=== PATIENT | female | born 1990 | race Caucasian/White ===

== ENCOUNTER 2017-03-13 07:51 | Emergency (ER) | payer OTHER ==
[2017-03-13 07:55] VITALS: BP 104/69; BMI 32.0
--- NOTE | 2017-03-13 08:26 | DR.GENAD ---
HPI - PCP Primary Care Physician: DAE BARRETT - Complaint/Symptoms Chief Complaint:: PT. C/O COUGHING, WHEEZING, CHEST TIGHTNESS, SORE THROAT, & FEVER. - Nurses notes reviewed Nurses Notes Review: Yes - Source History Provided: Patient - Mode of Arrival Mode of Arrival: Ambulatory - Timing Onset of Chief Complaint: 03/11/17 Came on: Gradually - Duration Duration: Intermittent How lon Duration: Days - Location Location: lungs - Severity Severity: Mild - Modifying Factors Worsens:: exercise - Associated Signs and Symptoms Associated Signs and Symptoms: sore throat PMH - PMH Past Medical History: Yes Past Medical History: Anxiety Past Surgical History: Yes Surgical History: , Cholecystectomy - Family History History of Family Medical Conditions: Yes Family Medical History: Hypertension - Social History Does patient currently use any type of tobacco product: No Have you used tobacco products in the last 12 months: No Type of Tobacco Use: None Does any household member use tobacco: No Alcohol Use: Occasionally Do you use any recreational Drugs:: No Lives With: Family Lives Where: Home - infectious screening In the last 2 months have you had wt loss of >10#?: NO Have you had fever, night sweats or hemotysis?: No Have you traveled outside the country in the last 6 months?: No Isolation: Standard ROS - Review of Systems Constitutional: No Symptoms Reported Eyes: No Symptoms Reported ENTM: Throat Pain Respiratoy: Non-Productive Cough, Wheezing (slight) Cardiovascular: No Symptoms Reported Gastrointestinal/Abdominal: No Symptoms Reported Genitourinary: No Symptoms Reported Neurological: No Symptoms Reported Musculoskeletal: No Symptoms Reported Integumentary: No Symptoms Reported Hematologic/Lymphatic: No Symptoms Reported Endocrine: No Symptoms Reported Psychiatric: Depression PE - Vital Signs Vitals: Temperature 98.2 F Pulse Rate 88 Respiratory Rate 17 Blood Pressure [Right Arm] 112/66 Blood Pressure [Left Arm] 102/63 Blood Pressure 104/69 O2 Sat by Pulse Oximetry 97 - General Limitations: No Limitations General Appearance: Alert, In No Apparent Distress - Head Head Exam: Normal Inspection - Eyes Eye exam: Normal Appearance, EOMI. negative: Scleral Icterus, Conjunctival Injection - ENT ENT Exam: Normal Exam, Normal Oropharynx External Ear Exam: Normal External Inspection Nose Exam: Normal Nose Exam Mouth Exam: Normal Inspection Throat Exam: Normal Inspection - Neck Neck Exam: Normal Inspection, Full ROM, Trachea Midline - Chest Chest Inspection: Normal Inspection - Respiratory Respiratory Exam: negative: Normal Lung Sounds Bilat, Accessory Muscle Use Respiratory Exam: Left Wheezing - Cardiovascular Cardiovascular Exam: Regular Rate - Extremities Extremities Exam: Normal Inspection, Full ROM - Neurologic Neurological Exam: Alert, Oriented X3, CN II-XII Intact - Psychiatric Psychiatric Exam: Depressed - Skin Skin Exam: Intact, Normal Color Course - Treatment Treatment: wheezing resolved after nebulizer. - Diagnosis Discharge Problem: Bronchitis - Discharge Plan Condition: Stable Prescriptions: Amoxicillin [AMOXIL CAP 500 MG *] 500 mg PO TID #30 cap Prednisone [Prednisone DS Dosepak 10 mg (12 day)] 1 jose PO ONCE #1 jose - Follow ups/Referrals Follow ups/Referrals: VIOLA ROMERO [Primary Care Provider] - 3 days - Instructions
[2017-03-13] MEDS ORDERED: XOPENEX 1.25 MG/3 ML NEB ONE (08:29)
[2017-03-13] MEDS ORDERED: XOPENEX 1.25 MG/3 ML ONE (08:45)
== END 2017-03-13 08:59 | disposition home or self-care (01) ==
LOC: ER 07:51
DX: J40 Bronchitis, not specified as acute or chronic (principal)
CPT/HCPCS: 94640; 99282

== ENCOUNTER 2017-03-28 20:28 | Emergency (ER) | payer OTHER ==
[2017-03-28 20:37] VITALS: BP 128/87
--- NOTE | 2017-03-28 21:04 | DR.GENAD ---
HPI - PCP Primary Care Physician: Viola Moore - Complaint/Symptoms Chief Complaint:: "I just feel really lightheaded and I have this burning feeling all over my body. My stomach is burning for some reason as well." - Source History Provided: Patient - Mode of Arrival Mode of Arrival: Ambulatory - Timing Onset of Chief Complaint: 03/28/17 PMH - PMH Past Medical History: Yes Past Medical History: Anxiety Past Surgical History: Yes Surgical History: , Cholecystectomy - Family History History of Family Medical Conditions: Yes Family Medical History: Hypertension - Social History Does patient currently use any type of tobacco product: No Have you used tobacco products in the last 12 months: No Type of Tobacco Use: None Does any household member use tobacco: No Alcohol Use: Rarely Do you use any recreational Drugs:: No Lives With: Spouse Lives Where: Home - infectious screening In the last 2 months have you had wt loss of >10#?: NO Have you had fever, night sweats or hemotysis?: No Have you traveled outside the country in the last 6 months?: No Isolation: Standard ROS - Review of Systems Eyes: No Symptoms Reported ENTM: No Symptoms Reported Respiratoy: No Symptoms Reported Cardiovascular: No Symptoms Reported Gastrointestinal/Abdominal: No Symptoms Reported Genitourinary: No Symptoms Reported Neurological: Weakness Musculoskeletal: No Symptoms Reported Integumentary: No Symptoms Reported Hematologic/Lymphatic: No Symptoms Reported Endocrine: No Symptoms Reported Psychiatric: No Symptoms Reported All Other Systems: Reviewed and Negative PE - Vital Signs Vitals: Temperature 97.9 F Pulse Rate 120 Respiratory Rate 23 Blood Pressure [Right Arm] 112/66 Blood Pressure [Left Arm] 102/63 Blood Pressure 128/87 O2 Sat by Pulse Oximetry 100 - General Limitations: No Limitations General Appearance: Alert, In No Apparent Distress - Head Head Exam: Normal Inspection, Atraumatic - Eyes Eye exam: Normal Appearance, PERRL, EOMI - ENT ENT Exam: Normal Exam External Ear Exam: Normal External Inspection TM/Canal Exam: Bilateral Normal Nose Exam: Normal Nose Exam Mouth Exam: Normal Inspection Throat Exam: Normal Inspection - Neck Neck Exam: Normal Inspection - Chest Chest Inspection: Normal Inspection - Respiratory Respiratory Exam: Normal Lung Sounds Bilat Respiratory Exam: Bilateral Clear to Auscultation - Cardiovascular Cardiovascular Exam: Regular Rate - Abdominal Exam Abdominal Exam: Normal Inspection Abdominal Tenderness: negative: RUQ, RLQ, LUQ, LLQ, Epigastrium, Suprapubic, Diffuse, Mild, Moderate, Severe, Other - Extremities Extremities Exam: Normal Inspection, Full ROM - Back Back Exam: Normal Inspection - Neurologic Neurological Exam: Alert, Oriented X3, CN II-XII Intact - Psychiatric Psychiatric Exam: Normal Affect - Skin Skin Exam: Warm, Dry, Intact Course - Reevaluation 1st: Improved ROR - Labs Reviewed Laboratory Results Reviewed?: Yes (low potassium) Result Diagrams: 03/28/17 21:50 03/28/17 21:50 Laboratory: WBC 15.0 X10^3/uL (3.6-10.0) H 03/28/17 21:50 RBC 4.59 X10^6/uL (3.5-5.4) 03/28/17 21:50 Hgb 14.1 g/dL (12.0-16.0) 03/28/17 21:50 Hct 41.5 % (36.0-47.0) 03/28/17 21:50 MCV 90.3 fL (80.0-100.0) 03/28/17 21:50 MCH 30.7 pg (27.0-34.0) 03/28/17 21:50 MCHC 34.0 g/dL (33.0-35.0) 03/28/17 21:50 RDW 13.0 % (11.6-16.5) 03/28/17 21:50 Plt Count 271 X10^3/uL (150.0-450.0) 03/28/17 21:50 MPV 7.8 fL (7.4-11.0) 03/28/17 21:50 Neut % 61.3 % (42.0-75.0) 03/28/17 21:50 Lymph % 26.6 % (21.0-51.0) 03/28/17 21:50 [place] % 10.0 % (0.0-13.0) 03/28/17 21:50 Eos % 1.7 % (0.9-2.9) 03/28/17 21:50 Baso % 0.4 % (0.2-1.0) 03/28/17 21:50 Neut # 9.2 x10^3/uL (2.2-4.8) H 03/28/17 21:50 Lymph # 4.0 X10^3/uL (1.3-2.9) H 03/28/17 21:50 [place] # 1.5 x10^3/uL (0.3-0.8) H 03/28/17 21:50 Eos # 0.3 x10^3/uL (0.0-0.2) H 03/28/17 21:50 Baso # 0.1 X10^3/uL (0.0-0.1) 03/28/17 21:50 Absolute Nucleated RBC 0.0 /100WBC 03/28/17 21:50 Sodium 143 mmol/L (136-145) 03/28/17 21:50 Corrected Sodium 143 mmol/L (136-145) 03/28/17 21:50 Potassium 3.1 mmol/L (3.5-5.1) L 03/28/17 21:50 Chloride 105 mmol/L (98-107) 03/28/17 21:50 Carbon Dioxide 23.6 mmol/L (21-32) 03/28/17 21:50 BUN 10 mg/dL (7-18) 03/28/17 21:50 Creatinine 0.69 mg/dL (0.55-1.02) 03/28/17 21:50 Est GFR (MDRD) Af Amer > 60 (>60) 03/28/17 21:50 Est GFR (MDRD) Non-Af > 60 (>60) 03/28/17 21:50 Glucose 114 mg/dL (65-99) H 03/28/17 21:50 Calcium 8.8 mg/dL (8.5-10.1) 03/28/17 21:50 Specimen Type Clean catch urine 03/28/17 21:09 Urine Color Yellow (YELLOW) 03/28/17 21:09 Urine Appearance Clear (CLEAR) 03/28/17 21:09 Urine pH 8.0 (5.0 - 8.0) 03/28/17 21:09 Ur Specific [place] 1.010 (1.000-1.030) 03/28/17 21:09 Urine Protein Negative (NEGATIVE) 03/28/17 21:09 Urine Glucose (UA) Negative (NEGATIVE) 03/28/17 21:09 Urine Ketones Negative (NEGATIVE) 03/28/17 21:09 Urine Occult Blood Negative (NEGATIVE) 03/28/17 21:09 Urine Nitrite Negative (NEGATIVE) 03/28/17 21:09 Urine Bilirubin Negative (NEGATIVE) 03/28/17 21:09 Urine Urobilinogen Normal (NORMAL) 03/28/17 21:09 Ur Leukocyte Esterase Negative (NEGATIVE) 03/28/17 21:09 Urine RBC 0-2 /HPF (NEGATIVE) 03/28/17 21:09 Urine WBC 0-2 /HPF (NEGATIVE) 03/28/17 21:09 Ur Squamous Epith Cells Negative /HPF (NEGATIVE) 03/28/17 21:09 Urine Bacteria Negative /HPF (NEGATIVE) 03/28/17 21:09 Ur Culture Indicated? No/not indicated 03/28/17 21:09 - Diagnosis Discharge Problem: Hypokalemia - Discharge Plan Condition: Stable - Follow ups/Referrals Follow ups/Referrals: VIOLA MOORE [Primary Care Provider] - 3 days - Instructions
[2017-03-28 21:15] LABS: BILIRUBIN,URINE NEGATIVE (NEGATIVE); BLOOD/HEMOGLOBIN,URINE NEGATIVE (NEGATIVE); GLUCOSE, URINE NEGATIVE (NEGATIVE); KETONES,URINE NEGATIVE (NEGATIVE); LEUKOCYTE ESTERASE ,URINE NEGATIVE (NEGATIVE); NITRITES,URINE NEGATIVE (NEGATIVE); PROTEIN,URINE NEGATIVE (NEGATIVE); UROBILINOGEN,URINE NORMAL (NORMAL)
[2017-03-28 21:23] LABS: APPEARANCE,URINE CLEAR (CLEAR); COLOR,URINE YELLOW (YELLOW); RBC,URINE 0-2 /HPF (NEGATIVE); SQUAMOUS EPITHELIAL CELL,UR NEGATIVE /HPF (NEGATIVE)
[2017-03-28 21:24] LABS: BACTERIA,URINE NEGATIVE /HPF (NEGATIVE)
[2017-03-28] MEDS ORDERED: NS 1000 ML 1,000 ML IV ONE (21:43)
[2017-03-28] MEDS ORDERED: NS 1000 ML 1,000 ML ONE (21:45)
[2017-03-28 22:07] LABS: BASOPHILS # (AUTO) 0.1 X10^3/uL (0.0-0.1); BASOPHILS % (AUTO) 0.4 % (0.2-1.0); EOSINOPHILS # (AUTO) 0.3 x10^3/uL (0.0-0.2); EOSINOPHILS % (AUTO) 1.7 % (0.9-2.9); HEMATOCRIT 41.5 % (36.0-47.0); HEMOGLOBIN 14.1 g/dL (12.0-16.0); LYMPHOCYTES % (AUTO) 26.6 % (21.0-51.0); MEAN CORPUSCULAR HEMOGLOBIN 30.7 pg (27.0-34.0); MEAN CORPUSCULAR VOLUME 90.3 fL (80.0-100.0); MEAN PLATELET VOLUME 7.8 fL (7.4-11.0); MONOCYTES # (AUTO) 1.5 x10^3/uL (0.3-0.8); NEUTROPHILS # (AUTO) 9.2 x10^3/uL (2.2-4.8); NEUTROPHILS % (AUTO) 61.3 % (42.0-75.0); PLATELET COUNT 271 X10^3/uL (150.0-450.0); RED BLOOD COUNT 4.59 X10^6/uL (3.5-5.4)
[2017-03-28 22:16] LABS: BLOOD UREA NITROGEN 10 mg/dL (7-18); CALCIUM 8.8 mg/dL (8.5-10.1); CARBON DIOXIDE 23.6 mmol/L (21-32); CHLORIDE 105 mmol/L (98-107); COR NA(FOR HYPERGLY) 143 mmol/L (136-145); CREATININE 0.69 mg/dL (0.55-1.02); GLUCOSE 114 mg/dL (65-99); SODIUM 143 mmol/L (136-145); eGFR BLACK RACES > 60 (>60); eGFR NON BLACK RACES > 60 (>60)
[2017-03-28] MEDS ORDERED: K-LYTE EFFERVESCENT PO STA (22:48)
== END 2017-03-28 23:20 | disposition home or self-care (01) ==
LOC: ER 20:38
DX: E87.6 Hypokalemia (principal)
CPT/HCPCS: 36415; 80048; 81001; 85025; 87502; 87503; 96365; 99283; A4222

== ENCOUNTER 2022-03-18 08:18 | Inpatient (IN) ==
--- NOTE | 2022-03-18 08:39 | DR.H&P ---
H&P - History & Physical for Day of: H&P Date: 03/18/22 - Chief Complaint Chief Complaint: SEVERE SWELLING TO LOWER LIP WITH "PUS POCKET" - History of Present Illness History of Present Illness: PT IS 31 WF DIRECT ADMIT FROM DR COTTO OFFICE WITH CELLULITIS AND ABSCESS FORMATION TO LOWER LIP. PT REPORTS ONSET APPROX ONE WEEK AGO. PT WAS SEEN IN ER X3, FAILED ON AMOXIL AND STEROIDS GIVEN IN ER. PT WAS STARTED ON BACTRIM DS ON FRIDAY WITHOUT IMPROVEMENT. PT CO PAIN TO RIGHT SIDE OF FACE UP TO EAR ONSET FRIDAY. PT DENIES ANY PMH OF DM OR HTN. PT ADMITTED FOR TREATMENT OF ACUTE ILLNESS. - Past Medical History Past Medical History: Anxiety - Past Surgical History Surgical History: Cholecystectomy, , Ortho Surgery - Family History Family Medical History: Hypertension - Social History Does patient currently use any type of tobacco product: No Have you used tobacco products in the last 12 months: No Type of Tobacco Use: Cigarettes Does any household member use tobacco: No Alcohol Use: None Drug Use: None Prescription drug monitoring program results: PDMP reviewed and no concerns identified - Medications Home Medications: No Known Drug Allergies Allergy (Verified 03/21/21 22:06) - Review of Systems Constitutional: Fever, Chills, Malaise Eyes: No Symptoms Reported ENT: Mouth Pain, Other (LOWER LIP SWELLING, REDNESS) Respiratory: No Symptoms Reported Cardiovascular: No Symptoms Reported Gastrointestinal: Nausea Genitourinary: No Symptoms Reported (LOWER LIP) Musculoskeletal: No Symptoms Reported Skin: Wound Neurological: No Symptoms Reported - Physical Exam Vital Signs: Blood Pressure [Right Arm] 112/68 Oriented: Normal Eyes: Normal Ear: Normal Nose: Normal Throat: Normal Respiratory: Clear Throughout Cardiovascular: Normal : Normal Auscultation: Bowel Sounds: Normal Palpation: Normal Tenderness: Normal Skin: Red, Tender (DIFFUSE REDNESS AND SWELLING TO LOWER LIP WITH ABSCESS FORMATION), Hot Musculoskeletal: Normal Psychiatric: Anxiety Mood Description: Anxious Affect: Anxious Speech Pattern: Clear, Appropriate - Assessment/Plan (1) Cellulitis and abscess of face Status: Acute Plan: ADMIT, IV ATBX. CONSULT DR MARROQUIN FOR I&D. BLOOD AND WOUND CULTURE. IV HYDRATION, PAIN AND NAUSEA CONTROL (2) Angioedema Qualifiers: Encounter type: subsequent encounter Qualified Code(s): T78.3XXD - Angioneurotic edema, subsequent encounter Status: Acute (3) Anxiety Status: Chronic - Allergies Allergies/Adverse Reactions: Allergies Allergy/AdvReac Type Severity Reaction Status Date / Time No Known Drug Allergies Allergy Verified 03/21/21 22:06
[2022-03-18] MEDS ORDERED: XYLOCAINE VISCOUS MT PRN (09:13)
[2022-03-18 09:33] VITALS: BMI 31.9
[2022-03-18] MEDS ORDERED: MILK OF MAGNESIA PO PRN (09:37)
[2022-03-18 09:48] LABS: BASOPHILS % (AUTO) 0.3 % (0.2-1.0); EOSINOPHILS # (AUTO) 0.1 x10^3/uL (0.0-0.2); EOSINOPHILS % (AUTO) 0.5 % (0.9-2.9); HEMATOCRIT 38.6 % (36.0-47.0); HEMOGLOBIN 13.3 g/dL (12.0-16.0); LYMPHOCYTES # (AUTO) 3.8 X10^3/uL (1.3-2.9); LYMPHOCYTES % (AUTO) 28.9 % (21.0-51.0); MEAN CORPUSCULAR HEMOGLOBIN 30.7 pg (27.0-34.0); MEAN CORPUSCULAR HGB CONC 34.5 g/dL (33.0-35.0); MEAN PLATELET VOLUME 7.9 fL (7.4-11.0); MONOCYTES # (AUTO) 1.2 x10^3/uL (0.3-0.8); NEUTROPHILS % (AUTO) 61.3 % (42.0-75.0); RED BLOOD COUNT 4.34 X10^6/uL (3.5-5.4); RED CELL DISTRIBUTION WIDTH 12.9 % (11.6-16.5)
[2022-03-18 10:06] LABS: ALANINE AMINOTRANSFERASE 30 Units/L (12-78); ALBUMIN 3.6 g/dL (3.4-5.0); ALKALINE PHOSPHATASE 84 Units/L (46-116); ASPARTATE AMINO TRANSFERASE 19 Units/L (15-37); BLOOD UREA NITROGEN 11 mg/dL (7-18); CALCIUM 8.7 mg/dL (8.5-10.1); CARBON DIOXIDE 29.1 mmol/L (21-32); CHLORIDE 101 mmol/L (98-107); CREATININE 0.78 mg/dL (0.55-1.02); SODIUM 137 mmol/L (136-145); TOTAL PROTEIN 7.3 g/dL (6.4-8.2); eGFR NON BLACK RACES > 60 (>60)
[2022-03-18] MEDS: NORCO 7.5/325 MG TAB PO PRN ×2 (10:09→23:55)
[2022-03-18] MEDS: NS 1,000 ML IV 1,000 ML IV SCH ×3 (10:10→20:20)
[2022-03-18] MEDS: CLEOCIN 600 MG IV PREMIX 600 MG/50 ML BAG IV SCH ×3 (10:10→21:06)
[2022-03-18 11:05] LABS: BILIRUBIN,URINE NEGATIVE (NEGATIVE); BLOOD/HEMOGLOBIN,URINE NEGATIVE (NEGATIVE); GLUCOSE, URINE NEGATIVE (NEGATIVE); KETONES,URINE NEGATIVE (NEGATIVE); LEUKOCYTE ESTERASE ,URINE NEGATIVE (NEGATIVE); NITRITES,URINE NEGATIVE (NEGATIVE); PH,URINE 6.5 (5.0 - 8.0); PROTEIN,URINE NEGATIVE (NEGATIVE); UROBILINOGEN,URINE 3+ (NORMAL)
[2022-03-18 11:07] LABS: APPEARANCE,URINE HAZY (CLEAR); COLOR,URINE YELLOW (YELLOW)
[2022-03-18 11:18] LABS: BACTERIA,URINE NEGATIVE /HPF (NEGATIVE); RBC,URINE 0-2 /HPF (0-3); SQUAMOUS EPITHELIAL CELL,UR FEW /HPF (NEGATIVE)
[2022-03-18] MEDS: DILAUDID INJ IVP PRN ×2 (13:09→17:29)
[2022-03-18] MEDS: FLAGYL IV PREMIX 500 MG BAG 500 MG/100 ML BAG IV SCH ×2 (13:44→21:06)
[2022-03-18] MEDS: ZOFRAN INJ 4 MG VIAL IVP PRN (13:50)
[2022-03-18] MEDS: ZOVIRAX PO SCH (21:06)
[2022-03-18] MEDS: COLACE CAP 100 MG PO SCH (21:06)
[2022-03-18] MEDS ORDERED: VISTARIL PO PRN (23:20)
[2022-03-18] MEDS ORDERED: ANTIVERT TAB 25 MG PO PRN (23:20)
[2022-03-18] MEDS ORDERED: NORCO 5/325 MG TAB PO PRN (23:20)
[2022-03-18] MEDS ORDERED: EFFEXOR TAB 75 MG (BID DOSING) PO SCH (23:45)
[2022-03-19] MEDS: DILAUDID INJ IVP PRN (01:55)
[2022-03-19 04:38] LABS: BASOPHILS % (AUTO) 0.3 % (0.2-1.0); EOSINOPHILS # (AUTO) 0.2 x10^3/uL (0.0-0.2); EOSINOPHILS % (AUTO) 1.6 % (0.9-2.9); HEMATOCRIT 37.1 % (36.0-47.0); HEMOGLOBIN 12.8 g/dL (12.0-16.0); LYMPHOCYTES # (AUTO) 3.1 X10^3/uL (1.3-2.9); LYMPHOCYTES % (AUTO) 30.7 % (21.0-51.0); MEAN CORPUSCULAR HEMOGLOBIN 30.6 pg (27.0-34.0); MEAN CORPUSCULAR HGB CONC 34.4 g/dL (33.0-35.0); MEAN CORPUSCULAR VOLUME 88.9 fL (80.0-100.0); MEAN PLATELET VOLUME 7.8 fL (7.4-11.0); MONOCYTES # (AUTO) 0.9 x10^3/uL (0.3-0.8); MONOCYTES % (AUTO) 9.2 % (0.0-13.0); NEUTROPHILS # (AUTO) 5.8 x10^3/uL (2.2-4.8); NEUTROPHILS % (AUTO) 58.2 % (42.0-75.0); RED BLOOD COUNT 4.17 X10^6/uL (3.5-5.4); RED CELL DISTRIBUTION WIDTH 12.7 % (11.6-16.5); WHITE BLOOD COUNT 10.1 X10^3/uL (3.6-10.0)
[2022-03-19 04:49] LABS: ALANINE AMINOTRANSFERASE 45 Units/L (12-78); ALBUMIN 3.1 g/dL (3.4-5.0); ALKALINE PHOSPHATASE 79 Units/L (46-116); ASPARTATE AMINO TRANSFERASE 27 Units/L (15-37); BLOOD UREA NITROGEN 8 mg/dL (7-18); CALCIUM 8.6 mg/dL (8.5-10.1); CARBON DIOXIDE 28.2 mmol/L (21-32); CHLORIDE 102 mmol/L (98-107); COR CA(FOR HYPOALB) 9.3 mg/dL (8.5-10.1); SODIUM 136 mmol/L (136-145); TOTAL PROTEIN 6.4 g/dL (6.4-8.2); eGFR NON BLACK RACES > 60 (>60)
[2022-03-19] MEDS: CLEOCIN 600 MG IV PREMIX 600 MG/50 ML BAG IV SCH ×3 (05:23→21:22)
[2022-03-19] MEDS: NS 1,000 ML IV 1,000 ML IV SCH ×3 (05:23→16:00)
[2022-03-19] MEDS: FLAGYL IV PREMIX 500 MG BAG 500 MG/100 ML BAG IV SCH ×3 (05:23→21:22)
[2022-03-19] MEDS: ZOVIRAX PO SCH ×3 (05:24→21:22)
[2022-03-19] MEDS: EFFEXOR XR 75 MG CAP 24-HR PO SCH (08:10)
[2022-03-19] MEDS: PEPCID TAB 20 MG PO SCH ×2 (08:10→20:51)
[2022-03-19] MEDS: ZOFRAN INJ 4 MG VIAL IVP PRN (08:55)
--- NOTE | 2022-03-19 10:03 | DR.PROGNOT ---
Hospital Progress Notes - Progress Note for Day of: Progress Note Date: 03/19/22 - Chief Complaint Chief Complaint: moderate improvement .. still having purulent drainage from the inner lip ulcer . growing staph A from the grainage .. - Past Medical Family Social History Past Med/Fam/Surg Hx: No changes since H&P Allergies: Allergies No Known Drug Allergies Allergy (Verified 03/21/21 22:06) - Review Of Systems ROS: No change since H&P - Vital Signs Vital Signs: Temperature 98.0 F Pulse Rate [Left Brachial] 76 Respiratory Rate 18 Blood Pressure [Right Arm] 115/69 O2 Sat by Pulse Oximetry 97 - Physical Exam Oriented: Normal Eyes: Normal Ear: Normal Nose: Normal Throat: Normal Cardiovascular: Normal : Normal GI:Auscultation: Normal GI:Palpation: Normal GI: Tenderness: Normal Skin: Red, Tender (DIFFUSE REDNESS AND SWELLING TO LOWER LIP WITH ABSCESS FORMATION), Hot Musculoskeletal: Normal Psychiatric: Anxiety Mood Description: Anxious Affect: Anxious Speech Pattern: Clear, Appropriate - Laboratory and Diagnostics Result Diagrams: 03/19/22 04:10 03/19/22 04:10 Labs: 03/18/22 10:49 Lip Wound Culture - Preliminary Laboratory WBC 10.1 X10^3/uL (3.6-10.0) H 03/19/22 04:10 RBC 4.17 X10^6/uL (3.5-5.4) 03/19/22 04:10 Hgb 12.8 g/dL (12.0-16.0) 03/19/22 04:10 Hct 37.1 % (36.0-47.0) 03/19/22 04:10 MCV 88.9 fL (80.0-100.0) 03/19/22 04:10 MCH 30.6 pg (27.0-34.0) 03/19/22 04:10 MCHC 34.4 g/dL (33.0-35.0) 03/19/22 04:10 RDW 12.7 % (11.6-16.5) 03/19/22 04:10 Plt Count 330 X10^3/uL (150.0-450.0) 03/19/22 04:10 MPV 7.8 fL (7.4-11.0) 03/19/22 04:10 Neut % (Auto) 58.2 % (42.0-75.0) 03/19/22 04:10 Lymph % (Auto) 30.7 % (21.0-51.0) 03/19/22 04:10 [place] % (Auto) 9.2 % (0.0-13.0) 03/19/22 04:10 Eos % (Auto) 1.6 % (0.9-2.9) 03/19/22 04:10 Baso % (Auto) 0.3 % (0.2-1.0) 03/19/22 04:10 Neut # (Auto) 5.8 x10^3/uL (2.2-4.8) H 03/19/22 04:10 Lymph # (Auto) 3.1 X10^3/uL (1.3-2.9) H 03/19/22 04:10 [place] # (Auto) 0.9 x10^3/uL (0.3-0.8) H 03/19/22 04:10 Eos # (Auto) 0.2 x10^3/uL (0.0-0.2) 03/19/22 04:10 Baso # (Auto) 0.0 X10^3/uL (0.0-0.1) 03/19/22 04:10 Absolute Nucleated RBC 0.0 /100WBC 03/19/22 04:10 Sodium 136 mmol/L (136-145) 03/19/22 04:10 Corrected Sodium TNP 03/19/22 04:10 Potassium 4.0 mmol/L (3.5-5.1) 03/19/22 04:10 Chloride 102 mmol/L (98-107) 03/19/22 04:10 Carbon Dioxide 28.2 mmol/L (21-32) 03/19/22 04:10 BUN 8 mg/dL (7-18) 03/19/22 04:10 Creatinine 0.60 mg/dL (0.55-1.02) 03/19/22 04:10 Est GFR (MDRD) Af Amer > 60 (>60) 03/19/22 04:10 Est GFR (MDRD) Non-Af > 60 (>60) 03/19/22 04:10 Glucose 84 mg/dL (65-99) 03/19/22 04:10 Calcium 8.6 mg/dL (8.5-10.1) 03/19/22 04:10 Corrected Calcium 9.3 mg/dL (8.5-10.1) 03/19/22 04:10 Total Bilirubin 0.60 mg/dL (0.2-1.0) 03/19/22 04:10 AST 27 Units/L (15-37) 03/19/22 04:10 ALT 45 Units/L (12-78) 03/19/22 04:10 Alkaline Phosphatase 79 Units/L (46-116) 03/19/22 04:10 Total Protein 6.4 g/dL (6.4-8.2) 03/19/22 04:10 Albumin 3.1 g/dL (3.4-5.0) L 03/19/22 04:10 Globulin 3.3 g/dL (2.5-4.5) 03/19/22 04:10 Albumin/Globulin Ratio 0.9 Ratio (1.1-2.1) L 03/19/22 04:10 Specimen Type Clean catch urine 03/18/22 10:50 Urine Color Yellow (YELLOW) 03/18/22 10:50 Urine Appearance Hazy (CLEAR) 03/18/22 10:50 Urine pH 6.5 (5.0 - 8.0) 03/18/22 10:50 Ur Specific [place] 1.010 (1.000-1.030) 03/18/22 10:50 Urine Protein Negative (NEGATIVE) 03/18/22 10:50 Urine Glucose (UA) Negative (NEGATIVE) 03/18/22 10:50 Urine Ketones Negative (NEGATIVE) 03/18/22 10:50 Urine Blood Negative (NEGATIVE) 03/18/22 10:50 Urine Nitrite Negative (NEGATIVE) 03/18/22 10:50 Urine Bilirubin Negative (NEGATIVE) 03/18/22 10:50 Urine Urobilinogen 3+ (NORMAL) 03/18/22 10:50 Ur Leukocyte Esterase Negative (NEGATIVE) 03/18/22 10:50 Urine RBC 0-2 /HPF (0-3) 03/18/22 10:50 Urine WBC None seen /HPF (0-5) 03/18/22 10:50 Ur Squamous Epith Cells Few /HPF (NEGATIVE) 03/18/22 10:50 Amorphous Sediment Trace /HPF (NEGATIVE) 03/18/22 10:50 Urine Bacteria Negative /HPF (NEGATIVE) 03/18/22 10:50 Ur Culture Indicated? 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 on IV ABT and Acyclovir ..local care . may discharge in Am on same medication and Ill follow as OP .. - Problem Patient Problems: Patient Problems Anxiety (Chronic) F41.9 Angioedema (Acute) T78.3XXA Cellulitis and abscess of face (Acute) L03.211, L02.01
[2022-03-19] MEDS: COLACE CAP 100 MG PO SCH (20:51)
--- NOTE | 2022-03-19 21:10 | PCM.PROG ---
Progress Note - Subjective Subjective: Patient is a 31 year old white female who was admitted as per HPI. Patient reports improvement in size and pain to lower lip. Appearance improved. Patient requesting to try regular food. No other concerns at present. - Past Medical Family Social History Past Med/Fam/Surg Hx: No changes since H&P Allergies: Allergies No Known Drug Allergies Allergy (Verified 03/21/21 22:06) - Review of Systems ROS: No change since H&P - Vital Signs and I&O's Vital Signs: Temperature 98.1 F Pulse Rate [Left Brachial] 98 Respiratory Rate 20 Blood Pressure [Left Arm] 124/75 Blood Pressure [Right Arm] 126/75 O2 Sat by Pulse Oximetry 98 Intake and Output: Intake & Output 03/16/22 03/17/22 03/18/22 03/19/22 23:59 23:59 23:59 23:59 Intake Total 1020 / 1020 3509 / 3509 Output Total 3 / 3 Balance 1017 / 1017 3509 / 3509 - Physical Exam Oriented: Normal Eyes: Normal Ear: Normal Nose: Normal Throat: Normal Respiratory: Normal Cardiovascular: Normal : Normal Auscultation: Bowel Sounds: Normal Palpation: Normal Tenderness: Normal Skin: Red, Tender (DIFFUSE REDNESS AND SWELLING TO LOWER LIP WITH ABSCESS FORMATION), Hot Musculoskeletal: Normal Psychiatric: Anxiety Mood Description: Calm, Withdrawn Affect: Normal Speech Pattern: Clear, Appropriate - Laboratory and Diagnostics Result Diagrams: 03/19/22 04:10 03/19/22 04:10 Labs: 03/18/22 10:49 Lip Wound Culture - Preliminary Laboratory WBC 10.1 X10^3/uL (3.6-10.0) H 03/19/22 04:10 RBC 4.17 X10^6/uL (3.5-5.4) 03/19/22 04:10 Hgb 12.8 g/dL (12.0-16.0) 03/19/22 04:10 Hct 37.1 % (36.0-47.0) 03/19/22 04:10 MCV 88.9 fL (80.0-100.0) 03/19/22 04:10 MCH 30.6 pg (27.0-34.0) 03/19/22 04:10 MCHC 34.4 g/dL (33.0-35.0) 03/19/22 04:10 RDW 12.7 % (11.6-16.5) 03/19/22 04:10 Plt Count 330 X10^3/uL (150.0-450.0) 03/19/22 04:10 MPV 7.8 fL (7.4-11.0) 03/19/22 04:10 Neut % (Auto) 58.2 % (42.0-75.0) 03/19/22 04:10 Lymph % (Auto) 30.7 % (21.0-51.0) 03/19/22 04:10 [place] % (Auto) 9.2 % (0.0-13.0) 03/19/22 04:10 Eos % (Auto) 1.6 % (0.9-2.9) 03/19/22 04:10 Baso % (Auto) 0.3 % (0.2-1.0) 03/19/22 04:10 Neut # (Auto) 5.8 x10^3/uL (2.2-4.8) H 03/19/22 04:10 Lymph # (Auto) 3.1 X10^3/uL (1.3-2.9) H 03/19/22 04:10 [place] # (Auto) 0.9 x10^3/uL (0.3-0.8) H 03/19/22 04:10 Eos # (Auto) 0.2 x10^3/uL (0.0-0.2) 03/19/22 04:10 Baso # (Auto) 0.0 X10^3/uL (0.0-0.1) 03/19/22 04:10 Absolute Nucleated RBC 0.0 /100WBC 03/19/22 04:10 Sodium 136 mmol/L (136-145) 03/19/22 04:10 Corrected Sodium TNP 03/19/22 04:10 Potassium 4.0 mmol/L (3.5-5.1) 03/19/22 04:10 Chloride 102 mmol/L (98-107) 03/19/22 04:10 Carbon Dioxide 28.2 mmol/L (21-32) 03/19/22 04:10 BUN 8 mg/dL (7-18) 03/19/22 04:10 Creatinine 0.60 mg/dL (0.55-1.02) 03/19/22 04:10 Est GFR (MDRD) Af Amer > 60 (>60) 03/19/22 04:10 Est GFR (MDRD) Non-Af > 60 (>60) 03/19/22 04:10 Glucose 84 mg/dL (65-99) 03/19/22 04:10 Calcium 8.6 mg/dL (8.5-10.1) 03/19/22 04:10 Corrected Calcium 9.3 mg/dL (8.5-10.1) 03/19/22 04:10 Total Bilirubin 0.60 mg/dL (0.2-1.0) 03/19/22 04:10 AST 27 Units/L (15-37) 03/19/22 04:10 ALT 45 Units/L (12-78) 03/19/22 04:10 Alkaline Phosphatase 79 Units/L (46-116) 03/19/22 04:10 Total Protein 6.4 g/dL (6.4-8.2) 03/19/22 04:10 Albumin 3.1 g/dL (3.4-5.0) L 03/19/22 04:10 Globulin 3.3 g/dL (2.5-4.5) 03/19/22 04:10 Albumin/Globulin Ratio 0.9 Ratio (1.1-2.1) L 03/19/22 04:10 Specimen Type Clean catch urine 03/18/22 10:50 Urine Color Yellow (YELLOW) 03/18/22 10:50 Urine Appearance Hazy (CLEAR) 03/18/22 10:50 Urine pH 6.5 (5.0 - 8.0) 03/18/22 10:50 Ur Specific [place] 1.010 (1.000-1.030) 03/18/22 10:50 Urine Protein Negative (NEGATIVE) 03/18/22 10:50 Urine Glucose (UA) Negative (NEGATIVE) 03/18/22 10:50 Urine Ketones Negative (NEGATIVE) 03/18/22 10:50 Urine Blood Negative (NEGATIVE) 03/18/22 10:50 Urine Nitrite Negative (NEGATIVE) 03/18/22 10:50 Urine Bilirubin Negative (NEGATIVE) 03/18/22 10:50 Urine Urobilinogen 3+ (NORMAL) 03/18/22 10:50 Ur Leukocyte Esterase Negative (NEGATIVE) 03/18/22 10:50 Urine RBC 0-2 /HPF (0-3) 03/18/22 10:50 Urine WBC None seen /HPF (0-5) 03/18/22 10:50 Ur Squamous Epith Cells Few /HPF (NEGATIVE) 03/18/22 10:50 Amorphous Sediment Trace /HPF (NEGATIVE) 03/18/22 10:50 Urine Bacteria Negative /HPF (NEGATIVE) 03/18/22 10:50 Ur Culture Indicated? No/not indicated 03/18/22 10:50 SARS CoV-2 RNA Rapid BISMARK Negative (NEGATIVE) 03/18/22 10:01 - Plan (1) Leukocytosis Status: Acute Qualifiers: Leukocytosis type: unspecified Qualified Code(s): D72.829 - Elevated white blood cell count, unspecified Plan: IV abx, cultures. Repeat labs in am (2) Cellulitis of skin of lip Status: Acute (3) Swollen lip Status: Acute
[2022-03-19] MEDS: NORCO 7.5/325 MG TAB PO PRN (22:01)
[2022-03-20] MEDS: NS 1,000 ML IV 1,000 ML IV SCH (02:05)
[2022-03-20 04:38] LABS: BASOPHILS % (AUTO) 0.4 % (0.2-1.0); EOSINOPHILS # (AUTO) 0.3 x10^3/uL (0.0-0.2); EOSINOPHILS % (AUTO) 2.5 % (0.9-2.9); HEMATOCRIT 36.9 % (36.0-47.0); HEMOGLOBIN 12.8 g/dL (12.0-16.0); LYMPHOCYTES # (AUTO) 3.4 X10^3/uL (1.3-2.9); MEAN CORPUSCULAR HEMOGLOBIN 30.7 pg (27.0-34.0); MEAN CORPUSCULAR HGB CONC 34.7 g/dL (33.0-35.0); MEAN CORPUSCULAR VOLUME 88.5 fL (80.0-100.0); MEAN PLATELET VOLUME 7.7 fL (7.4-11.0); MONOCYTES # (AUTO) 0.8 x10^3/uL (0.3-0.8); MONOCYTES % (AUTO) 7.3 % (0.0-13.0); NEUTROPHILS # (AUTO) 6.9 x10^3/uL (2.2-4.8); NEUTROPHILS % (AUTO) 59.8 % (42.0-75.0); RED BLOOD COUNT 4.17 X10^6/uL (3.5-5.4); RED CELL DISTRIBUTION WIDTH 12.7 % (11.6-16.5); WHITE BLOOD COUNT 11.5 X10^3/uL (3.6-10.0)
[2022-03-20 04:51] LABS: ALANINE AMINOTRANSFERASE 41 Units/L (12-78); ALBUMIN 3.1 g/dL (3.4-5.0); ALKALINE PHOSPHATASE 74 Units/L (46-116); ASPARTATE AMINO TRANSFERASE 18 Units/L (15-37); BLOOD UREA NITROGEN 10 mg/dL (7-18); CALCIUM 8.6 mg/dL (8.5-10.1); CARBON DIOXIDE 27.6 mmol/L (21-32); CHLORIDE 101 mmol/L (98-107); COR CA(FOR HYPOALB) 9.3 mg/dL (8.5-10.1); CREATININE 0.63 mg/dL (0.55-1.02); SODIUM 135 mmol/L (136-145); TOTAL PROTEIN 6.4 g/dL (6.4-8.2); eGFR NON BLACK RACES > 60 (>60)
[2022-03-20] MEDS: CLEOCIN 600 MG IV PREMIX 600 MG/50 ML BAG IV SCH (05:16)
[2022-03-20] MEDS: FLAGYL IV PREMIX 500 MG BAG 500 MG/100 ML BAG IV SCH (05:16)
[2022-03-20] MEDS: ZOVIRAX PO SCH (05:16)
[2022-03-20] MEDS: EFFEXOR XR 75 MG CAP 24-HR PO SCH (08:32)
[2022-03-20] MEDS: PEPCID TAB 20 MG PO SCH (08:32)
[2022-03-20] MEDS: ZOFRAN INJ 4 MG VIAL IVP PRN (09:28)
[2022-03-20 13:35] VITALS: BP 110/68
--- NOTE | 2022-05-01 00:21 | PCM.DCPLAN ---
Discharge Plan - Discharge Plan Hospital Course: Admit date 03/18/22 Discharge date 03/20/22 DOS 03/20/22 Admit diagnosis(1) Cellulitis and abscess of face (2) Angioedema (3) Anxiety Discharge diagnosis (1) Leukocytosis (2) Cellulitis of skin of lip (3) Swollen lip (4) MRSA Hospital Course PT IS 31 WF DIRECT ADMIT FROM DR COTTO OFFICE WITH CELLULITIS AND ABSCESS FORMATION TO LOWER LIP. PT REPORTS ONSET APPROX ONE WEEK AGO. PT WAS SEEN IN ER X3, FAILED ON AMOXIL AND STEROIDS GIVEN IN ER. PT WAS STARTED ON BACTRIM DS ON FRIDAY WITHOUT IMPROVEMENT. PT CO PAIN TO RIGHT SIDE OF FACE UP TO EAR ONSET FRIDAY. PT DENIES ANY PMH OF DM OR HTN. PT ADMITTED FOR TREATMENT OF ACUTE ILLNESS. PATIENT WAS TREATED WITH IV ABX. PAIN AD SWELLING SO SEVERE PATIENT HAD DIFFICULTY EATING AND DRINKING. PATIENT WAS GIVEN IV HYDRATION UNTIL ABLE TO TOLERATE FOOD AND FLUIDS. BLOOD CULTURES WERE NEGATIVE. WOUND CULTURE POSITIVE FOR MRSA. SYMPTOMS IMPROVED. PAIN BECAME MORE TOLERABLE. PATIENT WAS FAIZA TO TOLERATE FOOD AND FLUIDS. EDUCATION GIVEN REGARDING TREATMENT OF MRSA. PATIENT WAS DISCHARGED HOME ON PO ABX AND FOLLOW UP WITH PCP. SEE MED REC, LABS, AND IMAGING REPORTS FOR FURTHER DETAIL; ALL REVIEWED. Discharge time spent >35 mins. Disposition: 01 HOME, SELF-CARE Condition: Stable Health Concerns: Post Hospitalization: new medications and changes needed to prevent readmission or further decline. Pt educated and given instructions on all concerns. Care Plan Goals: Problem: Infection Goal: Temperature within normal limits. Resolved infection. Instructions: Follow provided instructions. Follow up with primary physician as directed. Contact primary care physician or report to the closest Emergency Room if condition worsens. Plan of Treatment: Continue with present treatment and follow up plan. Pt is to keep follow up appointment as instructed and take medications as ordered. Assessment: No acute distress noted at discharge. Prescriptions: New acyclovir 800 mg Tablet 800 mg PO TID Qty: 30 RF: 0 Transmission Status: Received by [facility] clindamycin HCl 300 mg Capsule 300 mg PO Q6H Qty: 30 RF: 0 Transmission Status: Received by [facility] hydrocodone-acetaminophen 5-325 mg Tablet 1 tab PO Q4H MDD 5 PRNQty: 20 RF: 0 Discontinued amoxicillin 500 mg capsule 500 mg PO Q8H Qty: 21 RF: 0 hydrocodone-acetaminophen 5-325 mg tablet 1 tab PO Q8H MDD 3 PRNQty: 14 RF: 0 No Action famotidine [Pepcid] 20 mg tablet 20 mg PO BID Qty: 30 RF: 0 hydroxyzine pamoate [Vistaril] 25 mg capsule 25 mg PO TID PRNQty: 30 RF: 0 meclizine 25 mg tablet 25 mg PO TID PRNQty: 21 RF: 0 prednisone 5 mg tablet 5 mg PO DAILY Qty: 7 RF: 0 venlafaxine [Effexor] 75 mg Tablet 75 mg PO DAILY - Follow ups/Referrals Follow ups/Referrals: VIOLA ROMERO [Primary Care Provider] - 03/27/22 2:45 pm SAMUEL WEN [STAFF PHYSICIAN] - 03/28/22 2:20 pm - Instructions Instructions: Angioedema, [id number], MRSA Infection, Self-Care, Adult, Hand Washing, [id number]-rl-[id number], Antibiotic Medicine, Adult, Oral Ulcers, Nausea and Vomiting, Adult, Soyb-[id number]-Wank, Cellulitis, Adult, [id number], Infection Prevention in the Home, You've Been Prescribed an Antibiotic in the Hospital for an Infection - [facility] Additional Instructions: Continue with mouth care warm salt water. Contact MD with any concerns. Forms: Excuse From Work or School, Precautions for COVID19, [facility], Patient Portal, Social Distancing Print Language: TAMAZIGHT
== END 2022-03-20 14:15 | disposition home or self-care (01) | DRG 158 ==
LOC: MED/SURG 08:25
PROVIDERS: ADMIT Internal Medicine; ATTEND Internal Medicine